=== PATIENT | male | born 1980 | race Two or more races ===

== ENCOUNTER 2018-01-09 15:10 | Emergency (ER) | payer OTHER ==
[~2018-01-09] VITALS: Ht 165.1 cm; Wt 89.0 kg
[2018-01-09 15:56] VITALS: BP 118/78
[2018-01-09] MEDS ORDERED: KETOROLAC 60MG/2ML VIAL IM ONE (17:15)
== END 2018-01-09 18:15 | disposition home or self-care (01) ==
LOC: ER 15:10
DX: M54.5 Low back pain (principal); M54.30 Sciatica, unspecified side
CPT/HCPCS: 96372; 99283; J1885